=== PATIENT | male | born 1945 | race Caucasian/White ===

== ENCOUNTER 2017-11-28 07:58 | Day surgery (SDC) | payer OTHER ==
[2017-11-28] VITALS (7 sets, daily range): BP systolic 120–149; BP diastolic 56–95; PULSE 64–82; RESP 18–19; TEMP 97.5–98.3; O2SAT 94–96
[~2017-11-28] VITALS: Ht 193 cm; Wt 174.0 kg
[~2017-11-28 07:58] MED LIST: COUM10TA PO; LISI40TA; OXYC-103 PO; PRED20 PO; ZOCO10TA
[2017-11-28] MEDS ORDERED: POVIDONE IODINE 5% (ANTISEPSIS KIT) 4 APPLICATIONS EACH NARE PRN (09:00)
[2017-11-28] MEDS ORDERED: SODIUM CHLORID 0.9% 500 ML INJ 500 ML IV SCH (09:00)
[2017-11-28] MEDS ORDERED: SODIUM CHLORID 0.9% 500 ML IV PRN (09:00)
[2017-11-28] MEDS ORDERED: LACTATED RINGER'S 1000 ML IV PRN (09:00)
[2017-11-28] MEDS ORDERED: CHLORHEXIDINE GLUCONATE 2 % 1 PACK (2 CLOTHS) TOPICAL PRN (09:00)
[2017-11-28] MEDS ORDERED: METOPROLOL TARTRATE 25 MG TAB PO PRN (09:00)
[2017-11-28] MEDS ORDERED: LORazepam 1 MG TAB SL SCH (09:00)
[2017-11-28] MEDS ORDERED: VITA100018 PO (09:10)
[2017-11-28] MEDS ORDERED: TYLE325T PO (09:10)
[2017-11-28] MEDS ORDERED: AMLO5TAB2 PO (09:10)
[2017-11-28] MEDS ORDERED: MAGN400T2 PO (09:10)
[2017-11-28] MEDS ORDERED: CENTCHW3 PO (09:10)
[2017-11-28] MEDS ORDERED: FENO160T PO (09:10)
[2017-11-28] MEDS ORDERED: METO25TA3 PO (09:10)
[2017-11-28] MEDS ORDERED: ZINC220C3 PO (09:10)
[2017-11-28] MEDS ORDERED: APIX2.5T PO (09:10)
[2017-11-28] MEDS ORDERED: FOLI800T PO (09:10)
[2017-11-28] MEDS ORDERED: RA BTAB PO (09:10)
[2017-11-28 09:12] LABS: AUTOMATED NEUTROPHIL # 4.8 TH/MM3 (1.8-7.7); BASOPHIL % 0.6 % (0.0-2.0); EOSINOPHIL # 0.1 TH/MM3 (0-0.4); EOSINOPHIL % 1.5 % (0.0-4.0); HEMATOCRIT 45.8 % (39.0-51.0); HEMOGLOBIN 15.5 GM/DL (13.0-17.0); LYMPH % 18.1 % (9.0-44.0); LYMPHOCYTE # 1.3 TH/MM3 (1.0-4.8); MEAN CELL VOLUME 92.5 FL (80.0-100.0); MEAN CORPUSCULAR HEMOGLOBIN 31.3 PG (27.0-34.0); MEAN CORPUSCULAR HGB CONC 33.8 % (32.0-36.0); MONOCYTE # 0.8 TH/MM3 (0-0.9); NEUT % 68.8 % (16.0-70.0); PLATELET COUNT 171 TH/MM3 (150-450); RED BLOOD COUNT 4.95 MIL/MM3 (4.50-5.90); RED CELL DISTRIBUTION WIDTH 14.3 % (11.6-17.2)
[2017-11-28 09:18] LABS: PROTHROMBIN TIME - PATIENT 10.5 SEC (9.8-11.6)
[2017-11-28 09:39] LABS: BICARBONATE 29.1 MEQ/L (21.0-32.0); CALCIUM 9.2 MG/DL (8.5-10.1); CREATININE 1.72 MG/DL (0.60-1.30)
[2017-11-28] MEDS ORDERED: HEPARIN-NS/PF FLUSH BAG 3,000 ML IV FLUSH ONE (11:35)
[2017-11-28] MEDS ORDERED: HEPARIN-D5W 25,000 U/250 ML 250 ML ONE (11:49)
[2017-11-28] MEDS ORDERED: LEVOFLOXACIN 500 MG PREMIX INJ 100 ML IV ONE ×2 (11:50→12:20)
[2017-11-28] MEDS ORDERED: HEPARIN SODIUM - IV 10,000 UNITS/10 ML VIAL ONE (11:50)
[2017-11-28] MEDS ORDERED: PROTAMINE SULFATE 50 MG/5 ML VIAL ONE ×3 (11:50→15:12)
[2017-11-28] MEDS ORDERED: ONDANSETRON HCL 4 MG/2 ML VIAL IV ONE (12:00)
[2017-11-28] MEDS ORDERED: DEXAMETHASONE SOD PHOS 4 MG/ML VIAL IV ONE (12:00)
[2017-11-28] MEDS ORDERED: PROPOFOL 200 MG/20 ML AMP IV ONE (12:00)
[2017-11-28] MEDS ORDERED: LIDOCAINE HCL 1% PF 5 ML SYRINGE OTHER ONE (12:00)
[2017-11-28] MEDS ORDERED: ROCURONIUM INJ 50 MG/5 ML SYRINGE IV PUSH ONE (12:00)
[2017-11-28] MEDS ORDERED: ePHEDrine/NS 25 MG/5 ML SYRINGE IV ONE (12:00)
[2017-11-28] MEDS ORDERED: FUROSEMIDE 40 MG/4 ML VIAL ONE (14:37)
[2017-11-28] MEDS ORDERED: ONDANSETRON HCL 4 MG/2 ML VIAL IV PUSH PRN (14:45)
[2017-11-28] MEDS ORDERED: oxyCODONE/ACETAMINOPHEN 5 MG/325 MG TAB PO PRN ×2 (14:45)
[2017-11-28] MEDS ORDERED: LORazepam 2 MG/ML VIAL IV PUSH PRN (14:45)
[2017-11-28] MEDS ORDERED: ATROPINE SULFATE 1 MG/ML VIAL IV PUSH PRN (14:45)
[2017-11-28] MEDS ORDERED: BACITRACIN OINT 0.9 GM PKT TOP ONE (14:45)
[2017-11-28] MEDS ORDERED: LIDOCAINE HCL 1% 50 ML VIAL INFIL PRN (14:45)
[2017-11-28] MEDS ORDERED: SODIUM CHLOR 0.9% 250 ML INJ 250 ML IV PRN (14:45)
[2017-11-28] MEDS ORDERED: ACETAMINOPHEN 325 MG TAB PO SCH (14:45)
--- NOTE | 2017-11-28 14:59 | CATHPROC ---
Patient Name: KEITH PEGUERO Study #: [id number] Initial MD: Jadyn Villeda Date of : 1945 Study Date: 11/28/2017 Cardiac Catheterization Report 11/28/2017 3:06:59 PM Financial #: [id number] 1 of 10 Patient Name: KEITH PEGUERO Study #: [id number] Initial MD: Jadyn Villeda Date of : 1945 Study Date: 11/28/2017 Entire Case Report Patient Information Patient Name KEITH PEGUERO Date of 1945 Age 72 years Financial # [id number] Gender M AlternateID Lab Number 2 Room Number DC03 Height (in) 76.0 Height (cm) 193.0 BSA 2.92 Weight (lbs) 382.8 Weight (kg) 174.0 Patient Address/Phone Number Home Address [facility] Home Phone Number [phone] [facility] [phone] Study Information Study Number Admission Scheduled Start Study Start [id number] Nov 28 2017 7:58AM 11/28/2017 Nov 28 2017 11:27AM [place] [facility] Electrophysiology Study Admit Source Facility Department Other [facility] Gi Physician Physician and Clinical Staff Initial Jadyn Giron Wash House Worker Arben Nichole,RT(R) Wash House Worker Faith Case,LOCATION WORKER TECH2 Other Anesthesia, TOWEL HEMMER Recorder Sophie Ricci,RN Recorder Rayna Vigil BSN Scrub Cyndie Quiroga,YUN Procedures Performed Procedure Location (Site) Vessel Name Ablation Procedure Cardioversion ICE CATHETER INSERT RA Atruim RF Ablation LT. ATRIUM LT. ATRIUM 11/28/2017 3:06:59 PM Financial #: [id number] 2 of 10 Patient Name: KEITH PEGUERO Study #: [id number] Initial MD: Jadyn Villeda Date of : 1945 Study Date: 11/28/2017 Equipment Time Senior Web Architect Description Size Mfg Part Number Used/Scraped NEEDLE, TRANSSEPTAL [facility] 98 [id number] 11:28 [facility] Used C1 *[id number] [employer]/ EP [id number] 11:28 KIT, TRANSDUCER / AFIB Used PACER *[id number]- CATHETER, TACTICATH ABLAT BUNDLE 11:28 [facility] Used 65 BUNDLE *[id number]- BUNDLE [id number] CATHETER, FR7 OPTIMA SPIRAL 11:28 [facility] FR7 *[id number]- Used BUNDLE BUNDLE [id number] 11:28 [facility] [employer] CATHETER, JSN, QUAD BUNDLE FR 5 *[id number]- Used BUNDLE [id number] 11:28 [facility] [employer] CATHETER, JSN, QUAD BUNDLE FR 5 *[id number]- Used BUNDLE 72185-UGIYIM SET, COOL POINT TUBING 11:28 [facility]UND[facility] *[id number]- Used BUNDLE BUNDLE SHEATH, FR8.5 STEERABLE SM 11:28 [facility]UN[facility] 71CM [id number] Used 71CM BUNDLE COVER, TRANSDUCER CABLE 612-113 11:28 [employer] Used ACUNAV *[id number] 11:28 CORDIS/PACER SHEATH, FR10 JUNIOR 11CM FR 10 Used *[id number] 11:28 CORDIS/PACER SHEATH, FR9 JUNIOR 11CM FR 9 [id number] Used [id number] 11:28 [place] IND[employer]RIES PACK, CCL CUSTOM * Used *[id number] 11:28 [employer] PACER CIFUENTES, LIMB * 2530 *[id number] Used [id number] 11:28 [employer] MEDICAL SHEATH, FR4.5 PRELUDE 11CM FR 4.5 Used 035ACT [id number] 11:28 NAMIC TUBING, HIGH PRESSURE 48" 48" Used *[id number] [id number] 11:28 NAMIC TUBING, HIGH PRESSURE 48" 48" Used *[id number] 11:28 [employer] MEDICAL BLANKET,WARM AIR CCL * Used *[id number] OU5280 11:28 [facility] MEDICAL ELECTRODE KIT, CABRERA X SURFACE * Used *[id number] 842516 11:28 [facility] MEDICAL SHEATH, EPS, FR6 FAST CATH FR 6 Used *[id number] 11:28 [facility] MEDICAL SHEATH, EPS, FR7 FAST CATH FR 7 [id number] Used 896000 11:28 [facility] MEDICAL SHEATH, EPS, FR8 FAST CATH FR 8 Used *[id number] CATHETER, ACUNAV FR10 ICE [id number] 12:56 LIBERTY FR 10 Used (LIBERTY) *[id number] [facility] PAD, ELECTROSURGICAL 11:28 * [id number] *[id number] Used SURGICAL GROUNDING (BLUE) 11/28/2017 3:06:59 PM Financial #: [id number] 3 of 10 Patient Name: KEITH PEGUERO Study #: [id number] Initial MD: Jadyn Villeda Date of : 1945 Study Date: 11/28/2017 Insurance Information Insurance Payor Private Health Insurance Third Democrat Third Democrat Number HUMANA GOLD PLUS O Impulsiv History: Allergies Allergy Reaction No Known Allergies Xqrfeaa-Mhs-Ujb Reductase CRAMPS Inhibitor Labs Hgb (g/dl) Hct (%) RBC (MIL/MM3) WBC (l/cumm) Platelets (thousands) 11.60-17.00 35.00-51.00 4.00-5.90 4.00-11.00 150.00-450.00 15.0 45 5 7 171 Glucose (mg/dl) BUN (mg/dl) Creatinine (mg/dl) BUN:Creatinine (1:x) 74.00-106.00 7.00-18.00 0.50-1.30 10.00-20.00 93 23 1.7 13.5 Na (meq/l) K (meq/l) 136.00-145.00 3.50-5.10 140 3.9 INR (PTT:PT) 0.90-1.10 1 Medication Medication Total Dose (Bolus/Oral) Medication Total Dosage/Unit 1% XYLOCAINE 40 mL HEPARIN 91583 units LASIX 40 mg PROTAMINE 60 mg 11/28/2017 3:06:59 PM Financial #: [id number] 4 of 10 Patient Name: KEITH PEGUERO Study #: [id number] Initial MD: Jadyn Villeda Date of : 1945 Study Date: 11/29/19 18 Medications (Bolus/Oral) Medication Time Given Dosage/Unit Administered By Reason 1% XYLOCAINE 11/28/2017 12:48:04 PM 20 mL Jadyn Villeda 20 mL 1% XYLOCAINE given in lab by Jadyn Villeda in Left Groin via Subcutaneous. 1% XYLOCAINE 11/28/2017 12:53:40 PM 20 mL Jadyn Villeda 20 mL 1% XYLOCAINE given in lab by Jadyn Villeda in Right Groin via Subcutaneous. HEPARIN 11/28/2017 1:01:47 PM 31731 units Anesthesia, TOWEL HEMMER 29903 units HEPARIN given in lab by Anesthesia, TOWEL HEMMER via Peripheral IV. Ordered by Jadyn Villeda. HEPARIN 11/28/2017 1:10:54 PM 5000 units Anesthesia, TOWEL HEMMER As per physicians verbal order 5000 units HEPARIN given in lab by Anesthesia, TOWEL HEMMER via Peripheral IV. Ordered by Jadyn Villeda. Reas on: As per physicians verbal order. HEPARIN 11/28/2017 1:11:32 PM 1000 units Anesthesia, TOWEL HEMMER As per physicians verbal order 1000 units HEPARIN given in lab by Anesthesia, TOWEL HEMMER via Peripheral IV. Ordered by Jadyn Villeda. Reas on: As per physicians verbal order. HEPARIN 11/28/2017 1:25:08 PM 3000 units Anesthesia, TOWEL HEMMER As per physicians verbal order 3000 units HEPARIN given in lab by Anesthesia, TOWEL HEMMER via Peripheral IV. Ordered by Jadyn Villeda. Reas on: As per physicians verbal order. HEPARIN 11/28/2017 1:44:14 PM 3000 units Anesthesia, TOWEL HEMMER As per physicians verbal order 3000 units HEPARIN given in lab by Anesthesia, TOWEL HEMMER via Peripheral IV. Ordered by Jadyn Villeda. Reas on: As per physicians verbal order. LASIX 11/28/2017 2:40:54 PM 40 mg Anesthesia, TOWEL HEMMER As per physicians aby bal order 40 mg LASIX given in lab by Anesthesia, TOWEL HEMMER via Peripheral IV. Ordered by Jadyn Villeda. Reason: As per physicians verbal order. PROTAMINE 11/28/2017 2:44:08 PM 40 mg Anesthesia, TOWEL HEMMER As per physicians v erbal order 40 mg PROTAMINE given in lab by Anesthesia, TOWEL HEMMER via Peripheral IV. Ordered by Jadyn Villeda. Reason: As per physicians verbal order. PROTAMINE 11/28/2017 2:56:28 PM 20 mg Anesthesia, TOWEL HEMMER As per physicians v erbal order 20 mg PROTAMINE given in lab by Anesthesia, TOWEL HEMMER via Peripheral IV. Ordered by Jadyn Villeda. Reason: As per physicians verbal order. Medication (Drip) Medication Time Given Dosage/Unit Concentration/Unit Diluent (ml) Solution ISUPREL 11/28/2017 2:24:10 PM 10 mcg/min 1 mg 250 NaCl .9 10 mcg/min ISUPREL given in lab by KARSTEN Gaviria via Peripheral IV. Pump/Drip Flow = 150 ml/hr usi ng NaCl .9 with a concentration of 1 mg in 250 ml. Ordered by Jadyn Villeda. Reason: As per physicians verbal order. IV Solutions 11/28/2017 11:56:31 AM 50 mL (IV) NaCl .9 IV Solutions given in lab by Rayna Vigil BSN in Right Antecubital via Peripheral IV. Pump/Dr ip Flow using NaCl .9 at kvo. Ordered by Jadyn Villeda. IV Solutions 11/28/2017 11:56:53 AM 50 mL (IV) NaCl .9 IV Solutions given in lab by Rayna Vigil BSN in Left Antecubital via Peripheral IV. Pump/Dri p Flow using NaCl .9 at kvo. Ordered by Jadyn Villeda. LEVAQUIN 11/28/2017 12:20:05 PM 100 mL/hr 500 100 NaCl .9 100 mL/hr LEVAQUIN given in lab by Rayna Vigil BSN via Peripheral IV. Pump/Drip Flow = 0 ml/ hr using NaCl .9 with a concentration of 500 mg in 100 ml. Ordered by Jadyn Villeda. 11/28/2017 3:06:59 PM Financial #: [id number] 5 of 10 Patient Name: KEITH PEGUERO Study #: [id number] Initial MD: Jadyn Villeda Date of : 1945 Study Date: 11/28/2017 Initial Case Assessment Cardiovascular HR Rhythm NIBP Chest Pain 70 AF 163/101 0 Edema Present Skin color Skin None Normal Warm Dry Circulatory - Right Pulses Dorsalis Pedis 2 Scale (0,1,2,3,4,d) Circulatory - Left Pulses Dorsalis Pedis 2 Scale (0,1,2,3,4,d) Neurological State Oriented to time-place- Alert Moves all extremities person Respiration - General Respiration Rate SpO2 (%) (B/min) 16 97 11/28/2017 3:06:59 PM Financial #: [id number] 6 of 10 Patient Name: KEITH PEGUERO Study #: [id number] Initial MD: Jadyn Villeda Date of : 1945 Study Date: 11/28/2017 Final Case Assessment Cardiovascular HR Rhythm NIBP Chest Pain 80 sr 130/60 0 Edema Present Skin color Skin Mild Normal Warm Dry Circulatory - Right Pulses Dorsalis Pedis 1 Scale (0,1,2,3,4,d) Circulatory - Left Pulses Dorsalis Pedis 1 Scale (0,1,2,3,4,d) Circulatory - Lower Extremities Color Lower Right Color Lower Left Normal Normal Neurological State Lethargic Moves all extremities Respiration - General Respiration Rate SpO2 (%) O2 (lpm) (B/min) 18 94 4 Chronological Log Time Study Chronological Log 11:28:17 Patient arrived via Bed. 11:28:18 Patient Name, D.O.B, / Armband Verified By R.N. 11:28:20 Consent signed by the physician and the patient and verified by the Gi Physician staff. 11:28:21 Pre-op and post- op instructions given; patient acknowledges understanding of instructions. 11:28:24 Verbal Stimulation=2 Physical Stimulation=2 Airway=2 Respiration=2 TOTAL=8. (0=absent, 1=li mited, 2=present) 11:28:32 Anesthesia, Bladimir, at bedside. Assumes care of patient. See anesthesia flowsheet for Q5min v itals 11:28:43 Patient has been NPO for More than 6Hrs. 11:28:44 Skin Breakdown- none per pt 11:28:50 Patient Warmer Placed on the Table. 11/28/2017 3:06:59 PM Financial #: [id number] Patient Name: KEITH PEGUERO Study #: [id number] Initial MD: Jadyn Villeda Date of : 1945 Study Date: 11/28/2017 11:28:51 Disposable Defibrillator Pads Placed On Patient. 11:28:52 Gui Prominences Protected 11:28:53 A # 20 IV was noted in the Antecubital (left). Grade = 0 11:28:54 A # 20 IV was noted in the Antecubital (right). Grade = 0 11:28:55 History and physical on the chart or being dictated. Assessment: Initial Case, HR=70 BPM, Rhythm=AF, SJKB=437/101 mmhg, Chest Pain=0, Edema=None, Color=Normal, Skin = Warm, Dry Right Pulses: Franki Ped=2 11:55:04 Left Pulses: Franki Ped=2 Neurological: State=Alert, Ox3, [place] Respiration: Resp=16 B/min, SpO2=97 % 11:56:12 Reference ECG taken 11:56:19 Table restraints applied according to hospital policy IV Solutions given in lab by Rayna Vigil BSN in Right Antecubital via Peripheral IV. P ump/Drip Flow using 11:56:31 NaCl .9 at kvo. Ordered by Jadyn Villeda. IV Solutions given in lab by Rayna Vigil BSN in Left Antecubital via Peripheral IV. Pu mp/Drip Flow using NaCl 11:56:53 .9 at kvo. Ordered by Jadyn Villeda. 11:57:26 Table restraints applied according to hospital policy 12:04:08 Anesthesiologist at bedside, 12:09:00 Pt intubated by anesthesia 12:10:[address] with positive urine return per protocol 12:12:05 Bilateral groins prepped with 2% chlorhexidine, and draped after a 3 minute waiting time. 100 mL/hr LEVAQUIN given in lab by Rayna Vigil BSN via Peripheral IV. Pump/Drip Flow = 0 ml/hr using 12:20:05 NaCl .9 with a concentration of 500 mg in 100 ml. Ordered by Jadyn Villeda. 12:20:51 paged 12:24:49 MD responded Time Out. Correct patient, procedure, procedure equipment, site and side verified with physicia n present. Time 12:33:43 concurred by MD, individual staff and TOWEL HEMMER. Time Out #2 - Consents verified, patient in correct position, all results are labled and displa yed, safety precautions 12:33:50 taken, antibiotics administered. Time out concurred by , individual staff and TOWEL HEMMER in procedu re 12:33:58 Case Start 12:34:23 PRANAY in progress 12:35:37 Pranay Complete 12:48:04 20 mL 1% XYLOCAINE given in lab by Jadyn Villeda in Left Groin via Subcutaneous. 12:48:53 Vascular access was obtained in the Fem Vein (left). 12:49:03 Vascular access was obtained in the Fem Vein (left). 12:49:10 Vascular access was obtained in the Fem Vein (left). 12:49:14 Vascular access was obtained in the Fem Art (left). 12:49:52 Reference ECG taken A SHEATH, FR4.5 PRELUDE 11CM FR 4.5 was advanced into the Fem Art (left) using the Modified Liudmila geena technique. 12:51:32 0.9ns pressure bag connected. 12:51:58 A SHEATH, EPS, FR6 FAST CATH FR 6 was advanced into the Fem Vein (left) using the Modified Seldinger technique. 12:52:06 A SHEATH, EPS, FR7 FAST CATH FR 7 was advanced into the Fem Vein (left) using the Modified Seldinger technique. 12:52:10 A SHEATH, FR10 JUNIOR 11CM FR 10 was advanced into the Fem Vein (left) using the Modified S eldinger technique. 11/28/2017 3:06:59 PM Financial #: [id number] Patient Name: KEITH PEGUERO Study #: [id number] Initial MD: Jadyn Villeda Date of : 1945 Study Date: 11/28/2017 12:53:40 20 mL 1% XYLOCAINE given in lab by Jadyn Villeda in Right Groin via Subcutaneous. 12:54:25 Vascular access was obtained in the Fem Vein (right). 12:54:28 A SHEATH, EPS, FR8 FAST CATH FR 8 was advanced into the Fem Vein (right) using the Modified Seldinger technique. A CATHETER, JSN, QUAD BUNDLE FR 5 was advanced vis Fem Vein (left) and placed in the CS. Placem ent was visually 12:55:00 confirmed under fluoroscopy. A CATHETER, JSN, QUAD BUNDLE FR 5 was advanced vis Fem Vein (left) and placed in the HIS. Place ment was 12:55:29 visually confirmed under fluoroscopy. 12:56:06 CATHETER, ACUNAV FR10 ICE (LIBERTY) FR 10 Was Postioned. A SHEATH, FR8.5 STEERABLE SM 71CM BUNDLE 71CM was exchanged in the Fem Vein (right). This was n ecessary in 12:57:17 order for catheter support. 12:59:00 [place] in 13:01:47 77038 units HEPARIN given in lab by Anesthesia, TOWEL HEMMER via Peripheral IV. Ordered by Adele Villeda. 13:02:32 A eps was advanced to the right atrium and passed through the septal wall to the left atriu m. 13:02:41 [place] out A CATHETER, FR7 OPTIMA SPIRAL BUNDLE FR7 was advanced vis Fem Vein (right) and placed in the LA . Placement 13:03:03 was visually confirmed under fluoroscopy. Mapping in progress. 13:06:19 Activated Clotting Time Drawn 13::17 ACT (Normal Range 90-180) = 242 5000 units HEPARIN given in lab by Anesthesia, TOWEL HEMMER via Peripheral IV. Ordered by Jadyn Villeda . Reason: As per 13:10:54 physicians verbal order. 1000 units HEPARIN given in lab by Anesthesia, TOWEL HEMMER via Peripheral IV. Ordered by Jadyn Villeda . Reason: As per 13:11:32 physicians verbal order. 13:17:01 Mapping complete. Catheter was removed A CATHETER, TACTICATH ABLAT 65 BUNDLE was advanced vis Fem Vein (right) and placed in the LA. P lacement was 13:18:00 visually confirmed under fluoroscopy. 13:18:43 Activated Clotting Time Drawn 13:20:00 RF Ablation of the LT. ATRIUM with a CATHETER, TACTICATH ABLAT 65 BUNDLE. 13:24:48 ACT (Normal Range 90-180) = 297 3000 units HEPARIN given in lab by Anesthesia, TOWEL HEMMER via Peripheral IV. Ordered by Jadyn Villeda . Reason: As per 13:25:08 physicians verbal order. 13:32:18 Activated Clotting Time Drawn 13:44:05 ACT (Normal Range 90-180) = 315 3000 units HEPARIN given in lab by Anesthesia, TOWEL HEMMER via Peripheral IV. Ordered by Jadyn Villeda . Reason: As per 13:44:14 physicians verbal order. 13:50:51 Activated Clotting Time Drawn 13:53:34 ACT (Normal Range 90-180) = 351 14:19:57 ECG rhythm of AF noted. Patient cardioverted at 200 joules. Success synch 14:23:08 Ablation complete. Catheter was removed A CATHETER, FR7 OPTIMA SPIRAL BUNDLE FR7 was advanced vis Fem Vein (right) and placed in the LA . Placement 14:23:20 was visually confirmed under fluoroscopy. 10 mcg/min ISUPREL given in lab by Anesthesia, TOWEL HEMMER via Peripheral IV. Pump/Drip Flow = 150 ml/ hr using NaCl .9 14:24:10 with a concentration of 1 mg in 250 ml. Ordered by Jadyn Villeda. Reason: As per physicians aby bal order. 14:34:54 Isuprel off. 14:37:31 All catheter(s) removed without difficulty 14:38:34 Sheath(s) left in place, secured, 0.9ns kvo connected and will be removed in Holding Area 11/28/2017 3:06:59 PM Financial #: [id number] Patient Name: KEITH PEGUERO Study #: [id number] Initial MD: Jadyn Villeda Date of : 1945 Study Date: 11/28/2017 14:39:07 PACU called. Spoke to Catherine 14:39:24 Bedside Report will be given. 14:39:42 Ablation procedure performed: AFIB. 14:39:47 EP Procedure was performed. 40 mg LASIX given in lab by Anesthesia, TOWEL HEMMER via Peripheral IV. Ordered by Jadyn Villeda. Reas on: As per physicians 14:40:54 verbal order. 14:41:32 Defibrillator and ground pads removed. Skin intact. 14:42:23 Sterile dressing applied to site 40 mg PROTAMINE given in lab by Anesthesia, TOWEL HEMMER via Peripheral IV. Ordered by Jadyn Villeda. Reason: As per 14:44:08 physicians verbal order. 14:51:35 Activated Clotting Time Drawn Assessment: Final Case, HR=80 BPM, Rhythm=sr, TFRT=407/60 mmhg, Chest Pain=0, Edema=Mild, [place] r=Normal, Skin = Warm, Dry Right Pulses: Franki Ped=1 Left Pulses: Franki Ped=1 14:53:24 Lower Right Extremities: Color=Normal Lower Left Extremities: Color=Normal Neurological: State=Lethargic, [place] Respiration: Resp=18 B/min, SpO2=94 %, O2=4 lpm 14:55:02 Patient moved to stretcher 14:55:08 ACT (Normal Range 90-180) = 222 20 mg PROTAMINE given in lab by Anesthesia, TOWEL HEMMER via Peripheral IV. Ordered by Jadyn Villeda. Reason: As per 14:56:28 physicians verbal order. 14:57:56 Case End End Study - Contrast Media Used In Study Contrast Total Opened (mL) Total Used (mL) Total Wasted (mL) Unspecified 0 0 0 End Study - Maximum Contrast Load Max Contrast Load (mL) 511.8 End Study - Radiation Exposure Fluoro Time (minutes) 2.8 End Study - Patient Disposition Complications Transferred To Interventional Outcome No Telemetry Bed successful 11/28/2017 3:06:59 PM Financial #: [id number] 10 10
--- NOTE | 2017-11-28 14:59 | PD.CARD ---
Atrial Fibrillation Ablation PROCEDURE DATE: Nov 28, 2017 PROCEDURES PERFORMED: 1. Electrophysiology study on Isuprel infusion 2. CS cannulation 3. 3-D mapping 4. Transseptal approach 5. Right and left heart catheterization 6. Intracardiac echo 7. Radiofrequency ablation of atrial fibrillation 8. Pulmonary vein isolation 9. Posterior wall ablation 10. Mitral valve isolation 11. Mitral line creation 12. Left atrial tachycardia ablation 13. Roof line creation 14. Floor line creation 15. Anterior wall ablation 16. Left atrial appendage isolation 17. Cardioversion INDICATIONS FOR THE PROCEDURE Mr. Benoit is a 72-year-old male with atrial fibrillation, very symptomatic, on anticoagulation referred for electrophysiology study and ablation. The risks, the nature and the benefits of the procedure were clearly stated to him. The risks include pneumothorax, cardiac perforation, stroke, need for open heart surgery and even . The patient understood and agreed to proceed. DESCRIPTION OF THE PROCEDURE IN DETAIL As written informed consent was obtained prior to esophageal echocardiogram, the patient was kept on the table where he was prepped and draped in the usual sterile fashion. Conscious sedation was initiated and maintained throughout the procedure by the anesthesiologist. Once sedation was verified, the right and left inguinal areas were anesthetized with 2% Xylocaine. Using modified Seldinger technique, the left femoral vein was cannulated on three occasions, three guidewires were advanced. Over the wire a 6, 7 and a 10-Cuban Hemaquet were advanced. Then the left femoral artery was cannulated on one occasion, one guidewire was advanced. Over the wire a 4-Cuban Hemaquet was advanced. Then the right femoral vein was cannulated on one occasion, one guidewire was advanced. Over the wire a 8-Cuban Hemaquet was advanced. Then under fluoroscopic guidance through the 6 and 7-Cuban Hemaquet, two 5-Cuban Mary curved quadripolar electrophysiology catheters were advanced and placed around the His as well as coronary sinus. Basic interval was measured. The patient was in atrial fibrillation. Through the 10-Cuban Hemaquet, a [employer]yer AcuNav intracardiac echo catheter was advanced and placed at the right atrium. Multiple view was obtained. There was no pericardial effusion, pulmonary vein was seen, atrial septal was visualized. Then the 8-Cuban Hemaquet in the right femoral vein was exchanged for Agilis transseptal sheath that was placed all the way to the superior vena cava. Through the sheath a Joan needle was advanced, then the sheath, the dilator and the needle were progressed until foci engaged. Once engaged, the needle was advanced. RF was delivered for 2 seconds. I was able to cross into the left atrium. Once the needle crossed, the dilator was advanced. Once the dilator crossed, the sheath was advanced. Once the sheath crossed, the dilator and the needle were removed. At this point I did flood the system and fluid movement was seen in the left atrium the indicates the sheath is in good position. The patient already received 12,000 units of heparin. The goal is to keep an ACT around 350 during ablation. Then through the sheath a [place] 20 pulse circumferential catheter was advanced. Using VenueJam endocardial solution mapping system, a two-dimensional configuration of the left atrium was obtained. Points were taken at the left superior and inferior veins, right superior and inferior veins, mitral valve, and appendages. Then through the sheath a [place] TactiCath 65cm 3.5mm irrigated tipped mapping and radiofrequency ablation catheter was advanced. Esophageal probe was placed temperature monitoring during ablation. When it increased to 0.5 degrees Celsius above baseline, I moved to a different area of the atrium. First I did isolate the left superior and inferior vein. I did make a big standing rock around the veins. Posterior was ablated. Then a roof line was created, a floor line was created, a mitral line was isolated, then the mitral valve was isolated. Left atrial appendage was isolated. At that point the patient was in left atrial tachycardia. I did create a line from the floor to the roof area, passing by the left atrial appendage. Then the right superior and inferior veins were isolated. I did remap the atrium. There is no significant signal in the atrium. At this point I decided to proceed with cardioversion. A 200 sync biphasic joule was delivered that converted the patient into sinus rhythm. At that point I did advance the circumferential catheter again into the vein. There was no signal into the vein, pacing from the vein showed no conduction to the atrium. Isuprel infusion was initiated at 10 mcg for over 10 minutes. No tachyarrhythmia was induced, post Isuprel no tachyarrhythmia was induced. At that point the procedure was complete. All catheters were removed, atrial septal sheath was exchanged for 9-Cuban Hemaquet, intracardiac echo showed no pericardial effusion. There is still good flow in the pulmonary vein. The patient is going to be transferred to the recovery room. No incident report. The patient tolerated the procedure. Blood loss was minimal. FINDINGS 1. Electrocardiogram: At baseline the patient was in atrial fibrillation, post procedure the patient was in sinus rhythm. 2. Basic interval: Base cycle length was around 800. Post ablation she was around 680 milliseconds. AH at 160 and HV at 48 milliseconds. 3. Tachyarrhythmia: Atrial fibrillation was mapped and ablated. Atrial tachycardia was ablated. The ablation was successful. CONCLUSION Successful electrophysiology study, mapping, radiofrequency ablation of atrial fibrillation, left atrial tachycardia, pulmonary vein isolation, posterior ablation, mitral valve isolation, mitral line creation, roof line creation, floor line creation, left atrial tachycardia, and cardioversion. COMMENTS AND RECOMMENDATIONS The patient is going to be transferred to the telemetry unit. Will be observed and when stable can be discharged home. Jadyn Villeda MD Nov 28, 2017 14:59
[2017-11-28] MEDS ORDERED: DO NOT ADM ANY ANTICOAGULANT DRUGS PRN (15:00)
[2017-11-28] MEDS ORDERED: PROTAMINE SULFATE 50 MG/5 ML VIAL IV PUSH ONE (15:12)
[2017-11-28] MEDS: APIXABAN 2.5 MG TABLET PO SCH (21:58)
[2017-11-28] MEDS: METOPROLOL TARTRATE 25 MG TAB PO SCH (21:59)
[2017-11-28] MEDS: AMIODARONE 200 MG TAB PO SCH (21:59)
[2017-11-29] VITALS (11 sets, daily range): BP systolic 127; BP diastolic 60–65; PULSE 64–78; RESP 18; TEMP 98–98.2; O2SAT 95–96
[2017-11-29 05:06] LABS: INTERNATIONAL NORMALIZED RATIO 1.1 RATIO; PROTHROMBIN TIME - PATIENT 11.1 SEC (9.8-11.6)
[2017-11-29] MEDS: APIXABAN 2.5 MG TABLET PO SCH (08:55)
[2017-11-29] MEDS: AMIODARONE 200 MG TAB PO SCH (08:55)
[2017-11-29] MEDS: METOPROLOL TARTRATE 25 MG TAB PO SCH (08:55)
[2017-11-29] MEDS ORDERED: amLODIPine BESYLATE 5 MG TAB PO SCH (09:00)
[2017-11-29] MEDS ORDERED: MULTIVITAMIN TAB PO SCH (09:00)
[2017-11-29] MEDS ORDERED: ZINC SULFATE 220 MG CAP PO SCH (09:00)
[2017-11-29] MEDS ORDERED: FOLIC ACID 1 MG TAB PO SCH (09:00)
[2017-11-29] MEDS ORDERED: MAGNESIUM OXIDE 400 MG TAB PO SCH (09:00)
[2017-11-29] MEDS ORDERED: VITAMIN B COMPLEX/VIT C TAB PO SCH (09:00)
[2017-11-29] MEDS ORDERED: CHOLECALCIFEROL (VIT D3) 1000 UNIT TAB PO SCH (09:00)
[2017-11-29] MEDS ORDERED: FENOFIBRATE 145 MG TAB PO SCH (09:00)
--- NOTE | 2017-11-29 12:03 | HHI.PR ---
Subjective Remarks Doing well Objective Vital Signs Date Time Temp Pulse Resp B/P (MAP) Pulse Ox O2 Delivery O2 Flow Rate FiO2 11/29/17 10:12 71 11/29/17 09:41 69 11/29/17 08:45 68 11/29/17 08:45 98.2 64 18 127/65 (85) 95 11/29/17 06:00 68 11/29/17 05:08 64 11/29/17 04:00 65 11/29/17 03:00 73 11/29/17 03:00 98.0 65 127/60 (82) 96 11/29/17 02:00 70 11/29/17 01:00 70 11/29/17 00:00 78 11/28/17 23:00 78 11/28/17 23:00 98.0 81 134/72 (92) 94 11/28/17 22:00 76 11/28/17 21:00 82 11/28/17 20:00 80 11/28/17 19:00 64 11/28/17 19:00 98.3 74 135/70 (91) 95 11/28/17 17:59 97.5 68 19 120/56 (77) 96 11/28/17 17:45 97.8 60 14 119/66 (83) 96 Nasal Cannula 2 11/28/17 17:00 60 14 106/58 (74) 99 11/28/17 16:00 59 18 130/73 (92) 98 11/28/17 15:45 61 17 121/59 (79) 97 11/28/17 15:40 Nasal Cannula 2 11/28/17 15:30 64 14 128/64 (85) 95 11/28/17 15:15 67 17 135/79 (97) 95 Simple Mask 6 11/28/17 15:04 97.7 75 17 136/71 (92) 93 Simple Mask 6 I/O 11/28/17 11/28/17 11/28/17 11/29/17 11/29/17 11/29/17 07:00 15:00 23:00 07:00 15:00 23:00 Intake Total 720 ml Output Total 1350 ml 850 ml Balance -1350 ml -130 ml Intake Oral 720 ml Output Urine Total 1350 ml 850 ml Result Diagram: 11/28/17 0845 11/28/17 0845 Imaging Alert, fully oriented Lungs: ventilated Heart: S1, S2 regular, no gallop Abdomen: soft, obese, no mass Ext: no edema Current Medications Medications (Trade) Dose Ordered Sig/Chin Route Start Time Stop Time Status Last Admin Sodium Chloride 500 ml @ 30 mls/hr [id number] IV 11/28/17 09:00 (Percocet 5-325 Mg) 1 tab Q4H PRN PO 11/28/17 14:45 (Percocet 5-325 Mg) 2 tab Q4H PRN PO 11/28/17 14:45 (Ativan Inj) 0.5 mg UNSCH PRN IV PUSH 11/28/17 14:45 11/29/17 14:44 (Atropine Inj) 0.5 mg UNSCH PRN IV PUSH 11/28/17 14:45 Sodium Chloride 250 ml @ 500 mls/hr ONCE PRN IV 11/28/17 14:45 11/29/17 14:44 (Zofran Inj) 4 mg Q4H PRN IV PUSH 11/28/17 14:45 (Xylocaine 1% Inj (50 ml)) 10 ml UNSCH PRN INFIL 11/28/17 14:45 11/29/17 14:44 (Norvasc) 5 mg DAILY PO 11/29/17 09:00 11/29/17 08:55 (Eliquis) 2.5 mg BID PO 11/28/17 21:00 11/29/17 08:55 (Vitamin D3) 1,000 units DAILY PO 11/29/17 09:00 11/29/17 08:55 (Folate) 1 mg DAILY PO 11/29/17 09:00 11/29/17 08:55 (Mag-Ox) 400 mg DAILY PO 11/29/17 09:00 11/29/17 08:55 (Lopressor) 25 mg BID PO 11/28/17 21:00 11/29/17 08:55 (Zinc Sulfate) 220 mg DAILY PO 11/29/17 09:00 11/29/17 08:55 (Tricor) 145 mg DAILY PO 11/29/17 09:00 11/29/17 08:55 (Theragran) 1 tab DAILY PO 11/29/17 09:00 11/29/17 08:55 (Allbee C) 1 tab DAILY PO 11/29/17 09:00 11/29/17 08:54 (Cordarone) 400 mg Q12HR PO 11/28/17 21:00 12/03/17 09:01 11/29/17 08:55 Miscellaneous Information ALL NURSING DEPARTME... UNSCH PRN .XX 11/28/17 15:00 11/29/17 14:59 (Cordarone) 200 mg DAILY PO 12/04/17 09:00 Assessment and Plan Problem List: (1) Shortness of breath ICD Codes: R06.02 - Shortness of breath Plan: Significantly improve (2) Palpitations ICD Codes: R00.2 - Palpitations Plan: No new episode reported (3) Atrial fibrillation ICD Codes: I48.91 - Unspecified atrial fibrillation Plan: SP ablation Doing well In sinus rhythm Feeling better Will be Jadyn Lozano MD Nov 29, 2017 12:03
[2017-11-29] MEDS ORDERED: AMIO200T PO ×2 (12:06)
--- NOTE | 2017-11-29 20:21 | EKG ---
Date Performed: 11/29/2017 Time Performed: 04:14:00 PTAGE: 72 years EKG: Sinus rhythm with 1st degree A-V block Consider left atrial abnormality Poor R wave progression - probable normal variant Abnormal ECG PREVIOUS TRACING : 11/28/2017 15.58 Since the previous tracing, no significant change noted DOCTOR: Karsten William Interpretating Date/Time 11/29/2017 20:20:22
--- NOTE | 2017-11-29 20:44 | EKG ---
Date Performed: 11/28/2017 Time Performed: 15:58:49 PTAGE: 72 years EKG: Sinus rhythm WITH FIRST DEGREE AV BLOCK MODERATE INTRAVENTRICULAR CONDUCTION DELAY PROLONGED QT INTERVAL ABNORMAL ECG PREVIOUS TRACING : 11/28/2017 09.05 Since the previous tracing, no significant change noted DOCTOR: Karsten William Interpretating Date/Time 11/29/2017 20:43:19
--- NOTE | 2017-11-29 21:01 | EKG ---
Date Performed: 11/28/2017 Time Performed: 09:05:00 PTAGE: 72 years EKG: Atrial fibrillation. Poor R wave progression - probable normal variant Abnormal ECG PREVIOUS TRACING : 04/30/2007 16.38 DOCTOR: Karsten William Interpretating Date/Time 11/29/2017 20:59:59
[2017-12-04] MEDS ORDERED: AMIODARONE 200 MG TAB PO SCH (09:00)
== END 2017-11-29 12:47 | disposition home or self-care (01) ==
LOC: HDOC 07:58 → HDIC 07:59 → HCPC 17:55 → HDOC 11-29 12:47
PROVIDERS: ATTEND Internal Medicine Interventional Cardiology
DX: I48.2 Chronic atrial fibrillation (principal); I44.0 Atrioventricular block, first degree; I45.81 Long QT syndrome; R06.02 Shortness of breath; R00.2 Palpitations
CPT/HCPCS: 80048; 85002; 85025; 85610; 85730; 86850; 86900; 86901; 92960; 93005; 93312; 93320; 93325; 93613; 93623; 93656; 93662; C1730; C1731; C1732; C1759; C1766; C2630; J1100; J1644; J1940; J1956; J2405; J2720; J3010